=== PATIENT | female | born 2000 | race African-American/Black ===

== ENCOUNTER 2020-12-08 15:09 | Emergency (ER) | payer OTHER ==
[~2020-12-08] VITALS: Ht 160 cm; Wt 86.2 kg
[2020-12-08 16:25] VITALS: BP 139/88
[2020-12-08] MEDS ORDERED: AUGMENTIN 875-1 EACH PO (17:31)
== END 2020-12-08 17:31 | disposition home or self-care (01) ==
LOC: ER 15:09
DX: K04.7 Periapical abscess without sinus (principal)

== ENCOUNTER 2021-01-10 07:52 | Emergency (ER) | payer OTHER ==
[~2021-01-10] VITALS: Ht 160 cm; Wt 86.2 kg
[~2021-01-10 07:52] MED LIST: AUGMENTIN 875-1 EACH PO
--- NOTE | 2021-01-10 11:55 | EKG ---
[address] [employer] [place] [address] ELECTROCARDIOGRAM REPORT Name: NGUYEN YODER [facility] [id number] Admission: 01/10/21 Attend Phys: Discharge: Date of : [birth year] Report #: [id number] [facility] ED Test Date: 2021-01-10 Test Time: 08:05:39 Pat Name: NGUYEN YODER Department: Room: Gender: F Commercial Counsel: JUAN M : 2000 Requested By: Ramses Bowman Order Number: [id number] MD: Dionicio Royal Measurements Intervals [place] Rate: 111 P: 67 [place]: 171 QRS: 60 QRSD: 85 T: -9 QT: 309 QTc: 420 Interpretive Statements Sinus tachycardia LAE, consider biatrial enlargement Borderline T wave abnormalities No previous ECG available for comparison Electronically Signed On 01-10-2021 11:54:55 CDT by Dionicio Royal [email or web address] <ELECTRONICALLY SIGNED> By: Dionicio Royal MD, [facility] 01/10/21 1154 0805 4 Dionicio Royal MD, FACC /EPI
[2021-01-10] MEDS ORDERED: PREDNISONE 20 M20 MG PO (12:10)
[2021-01-10] MEDS ORDERED: PROAIR HFA8.5 GM INH (12:10)
[2021-01-10 12:21] VITALS: BP 118/59
[2021-01-11] MEDS ORDERED: TESSALON PERLE100 M1 PO (15:22)
[2021-01-11] MEDS ORDERED: PREDNISONE 10 M10 MG PO (15:22)
== END 2021-01-10 12:22 | disposition home or self-care (01) ==
LOC: ER 07:52
DX: J45.909 Unspecified asthma, uncomplicated (principal); Z20.822 Contact with and (suspected) exposure to COVID-19

== ENCOUNTER 2021-01-11 12:10 | Emergency (ER) | payer OTHER ==
[~2021-01-11] VITALS: Ht 160 cm; Wt 86.2 kg
[~2021-01-11 12:10] MED LIST changes: +PREDNISONE 20 M20 MG PO; +PROAIR HFA8.5 GM INH
[2021-01-11 14:23] LABS: BASOPHILS 0.1 % (0.0-2.0); HEMATOCRIT 38.3 % (37.0-47.0); HEMOGLOBIN 12.4 gm/dL (12.0-15.0); LYMPHOCYTES 6.2 % (24.0-44.0); MCH 26.5 pg (26.0-34.0); MCHC 32.4 g/dL (28.0-37.0); MCV 81.6 fL (80.0-100.0); MONOCYTES 7.7 % (1.0-8.0); PLATELET COUNT 247 thou/uL (150-400); RBC 4.69 mil/uL (4.20-5.00); RDW 13.8 % (10.5-14.5); WBC 10.5 thou/uL (4.0-11.0)
[2021-01-11 14:39] LABS: CALCIUM 9.4 mg/dL (8.5-10.1); CREATININE 0.7 mg/dL (0.6-1.0); POTASSIUM 3.7 mmol/L (3.5-5.1)
[2021-01-11 14:49] LABS: ALBUMIN 3.7 g/dL (3.4-5.0); TOTAL BILIRUBIN 0.2 mg/dL (0.2-1.0); TOTAL PROTEIN 7.8 g/dL (6.4-8.2)
[2021-01-11] MEDS ORDERED: TESSALON PERLE100 M1 PO (15:22)
[2021-01-11] MEDS ORDERED: PREDNISONE 10 M10 MG PO (15:22)
[2021-01-11 15:23] VITALS: BP 132/93
--- NOTE | 2021-01-11 15:47 | EKG ---
[address] [address] ELECTROCARDIOGRAM REPORT Name: NGUYEN YODER [facility] [id number] Admission: 01/11/21 Attend Phys: Discharge: Date of : [birth year] Report #: [id number] [facility] ED Test Date: 2021-01-11 Test Time: 12:36:54 Pat Name: NGUYEN YODER Department: Room: Gender: F [employer] Pack[employer]: CHETAN : 2000 Requested By: Angelita Boyer Order Number: [id number] MD: Dionicio Royal Measurements Intervals [place] Rate: 111 P: 62 [place]: 139 QRS: 66 QRSD: 81 T: -21 QT: 312 QTc: 424 Interpretive Statements Sinus tachycardia Left atrial enlargement Borderline repolarization abnormality Compared to ECG 01/10/2021 08:05:39 T-wave abnormality no longer present Electronically Signed On 01-11-2021 15:47:42 CDT by Dionicio Royal [email or web address] <ELECTRONICALLY SIGNED> By: Dionicio Royal MD, [facility] 01/11/21 1547 1236 1236 Dionicio Royal MD, FACC /EPI
== END 2021-01-11 15:23 | disposition home or self-care (01) ==
LOC: ER 12:10
PROVIDERS: Physician Assistant
DX: J45.901 Unspecified asthma with (acute) exacerbation (principal); E66.9 Obesity, unspecified; Z68.33 Body mass index [BMI] 33.0-33.9, adult; Z79.51 Long term (current) use of inhaled steroids